=== PATIENT | female | born 1945 | race Caucasian/White ===

== ENCOUNTER 2023-03-24 10:23 | Outpatient (CLI) | payer MEDICARE, SELFPAY ==
[2023-03-24 11:15] LABS: INR 1.3; Prothrombin Time 16.4 Seconds (11.1-14.7)
[2023-03-24 11:17] LABS: Anion Gap 5 mmol/L (8-16); Blood Urea Nitrogen 45 mg/dL (7-17); Calcium 8.8 mg/dL (8.4-10.2); Carbon Dioxide 34 mmol/L (22-30); Chloride 95 mmol/L (98-107); Estimated Glomerular Filt Rate 20; Glucose 97 mg/dL (65-110); Potassium 4.2 mmol/L (3.4-5.0); Sodium 134 mmol/L (137-145)
== END 2023-03-24 10:24 | disposition home or self-care (01) ==
PROVIDERS: Referring Provider Urology; Visit Provider Anesthesiology
DX: Z01.818 Encounter for other preprocedural examination (principal); N36.42 Intrinsic sphincter deficiency (ISD); N28.9 Disorder of kidney and ureter, unspecified
CPT/HCPCS: 36415; 80048; 85610; 85730; 87086; 87088

== ENCOUNTER 2023-03-30 03:30 | Day surgery (SDC) | payer MEDICARE, SELFPAY ==
[2023-03-23 11:40] VITALS: BMI 28.4
--- NOTE | 2023-03-23 12:12 | PC.NURSE ---
Report to the Outpatient Waiting Room, entrance under the green pavilion located off [facility], at time __6:15AM on date __03/30/23 . Planned Procedure Time: __8:15AM . Time changes happen often and if your time is changed the preop area will call you the afternoon before. - You and your visitor will be asked to self-screen and do not enter if you have any COVID symptoms. - A mask is optional within the hospital at this time. Patients may have clear liquids (water, carbonated beverages, clear teas, apple juice) until 3 hours prior to surgery with a maximum of 20 ounces. - No food from midnight until time of surgery Take the following medications with a SIP of water the morning of surgery: __BREO ELLIPTA INHALER, CARBIPOPA-LEVODOPA, DOXAZOSIN & DULOXETINE. TAKE NEEDED- ALBUTEROL INHALER, ZOFRAN, TRAMADOL OR HYDROCODONE DO NOT STOP ANY OF YOUR OTHER PRESCRIPTION MEDICATIONS PRIOR TO SURGERY ?EXCEPT THE FOLLOWING Medications to discontinue per physician __HOLD ELIQUIS 2 DAYS PRE-OP PER DR SCHULZ(PER PATIENT/)- LAST DOSE 03/28/23-PER DR SCHULZ. HOLD ALL VITAMINS/SUPPLEMENTS 3 DAYS PRE-OP PER ANESTHESIA- LAST DOSE 03/26/23 Please no make-up, nail serbian, hairspray, perfume, deodorant, or body powder the day of surgery. No jewelry (including any body piercings) or valuables the day of surgery, leave them at home. Please take a shower or bath the night before, or the morning of, surgery with an antibacterial soap. Wear comfortable, loose fitting clothing. Children are encouraged to wear pajamas. - Jewelry must be removed prior to entering the operating room. Rings and piercings that are not removed may be cut off. - The hospital will not accept responsibility for valuables. - Please leave all valuables, including medications, at home the day of surgery. If you are going home after surgery, a licensed class a regional drivers must drive you home. - NO public transportation without another adult if you receive anesthesia. - We recommend that an adult stay with you for 24 hours following discharge. - We also recommend that you do not drive, make important decision, drink alcoholic beverages, or take any drugs that were not prescribed by your health care provider for at least 24 hours after your discharge time. Follow any additional instructions given to you from your surgeon. If you or anyone in your household have experienced Covid symptoms in the past week, please notify your surgeon or the nurse liaison at the phone number below for possible testing. Telephone instructions given to __PATIENT & HUSBAND and asked if any additional questions and then verbalized understanding. Patient advised to call surgeon office or pre surgery nurse liaison [phone] if any additional questions.
--- NOTE | 2023-03-29 07:39 | PM.IMHP ---
H&P: HPI History of Present Illness Date/Time: 03/29/23 07:39 Chief Complaint: mixed incontinence Narrative: 77-year-old with mixed incontinence. She is on medication for overactive bladder symptoms. She desires a surgical procedure for stress incontinence and intrinsic sphincter deficiency Review of Systems Review of Systems: All systems reviewed & are unremarkable except as noted in HPI and below PMFSH Social History Social History Smoking status: Never smoker Substance use: never Living arrangements: with family Additional living arrangements comments: HUSB Spiritual care concerns: No Meds Home Medications and Allergies Home Medications Medication Instructions Recorded Confirmed Type Lactobac no.2-Bifidobac no.1-S. 1 cap PO DAILY 03/23/23 03/23/23 History thermo 112.5 billion cell capsule (VSL#3) albuterol sulfate 90 mcg/actuation 2 puff inhalation Q4-5H PRN 03/23/23 03/23/23 History aerosol inhaler Shortness Of Breath Or Wheezing allopurinol 100 mg tablet 100 mg PO DAILY 03/23/23 03/23/23 History apixaban 2.5 mg tablet (Eliquis) 2.5 mg PO BID 03/23/23 03/23/23 History atorvastatin 40 mg tablet 40 mg PO DAILY 03/23/23 03/23/23 History carbidopa 25 mg-levodopa 100 mg 1 tablet PO TID 03/23/23 03/23/23 History tablet cholecalciferol (vitamin D3) 125 125 mcg PO DAILY 03/23/23 03/23/23 History mcg (5,000 unit) tablet colchicine (gout) 0.6 mg capsule 0.6 mg PO DAILY PRN GOUT 03/23/23 03/23/23 History doxazosin 2 mg tablet 2 mg PO BID 03/23/23 03/23/23 History duloxetine 30 mg capsule,delayed 30 mg PO HS 03/23/23 03/23/23 History release duloxetine 60 mg capsule,delayed 60 mg PO QAM 03/23/23 03/23/23 History release esomeprazole magnesium 40 mg 40 mg PO QAM 03/23/23 03/23/23 History capsule,delayed release famotidine 20 mg tablet 20 mg PO HS 03/23/23 03/23/23 History fluticasone furoate 100 1 inh inhalation QAM 03/23/23 03/23/23 History mcg-vilanterol 25 mcg/dose inhalation powder (Breo Ellipta) furosemide 20 mg tablet (Lasix) 20 mg PO BID 03/23/23 03/23/23 History hydrocodone 5 mg-acetaminophen 325 1 tablet PO Q8-10H PRN Pain 03/23/23 03/23/23 History mg tablet hydroxyzine HCl 25 mg tablet 25 mg PO DAILY PRN Itching 03/23/23 03/23/23 History latanoprost 0.005 % eye drops 1 drp EACH EYE HS 03/23/23 03/23/23 History magnesium 500 mg tablet 15 mg PO HS 03/23/23 03/23/23 History melatonin 5 mg capsule 5 mg PO HS 03/23/23 03/23/23 History metoprolol succinate 100 mg 100 mg PO HS 03/23/23 03/23/23 History tablet,extended release 24 hr mirabegron 50 mg tablet,extended 50 mg PO QAM 03/23/23 03/23/23 History release 24 hr (Myrbetriq) ondansetron HCl 4 mg tablet 4 mg PO Q6H PRN Nausea 03/23/23 03/23/23 History potassium chloride 20 mEq 20 meq PO DAILY 03/23/23 03/23/23 History tablet,extended release ropinirole 0.5 mg tablet 0.5 mg PO DIRECTED 03/23/23 03/23/23 History ropinirole 1 mg tablet 1 mg PO BID 03/23/23 03/23/23 History solifenacin 5 mg tablet 5 mg PO DAILY 03/23/23 03/23/23 History tramadol 50 mg tablet 50 mg PO BID PRN Pain 03/23/23 03/23/23 History Allergies Allergy/AdvReac Type Severity Reaction Status Date / Time Sulfa (Sulfonamide Allergy Itching Verified 03/23/23 11:14 Antibiotics) metoclopramide [From Reglan] AdvReac Shakiness Verified 03/23/23 11:15 Exam Narrative: no acute distress alert oriented x3 fixed urethra Assessment and Plan Assessment and plan (1) Intrinsic sphincter deficiency (ISD): Code(s): N36.42 - Intrinsic sphincter deficiency (ISD) Status: Acute Assessment and Plan: plan for bulking agent. Understands risks of bleeding, infection, damage surrounding organs, urinary retention requiring catheterization, persistent or recurrent incontinence, need for procedures in the future. Agrees to proceed she also understands will not hel
[2023-03-30] VITALS (7 sets, daily range): BP systolic 115–164; BP diastolic 58–80; PULSE 64–83; RESP 12–18; TEMP 36.3; O2SAT 97–98
[2023-03-30] MEDS: LACTATED RINGERS 1,000 ML 30 ML IV CONT (06:30)
[2023-03-30 06:49] LABS: Anion Gap 8 mmol/L (8-16); Blood Urea Nitrogen 49 mg/dL (7-17); Calcium 8.9 mg/dL (8.4-10.2); Carbon Dioxide 31 mmol/L (22-30); Chloride 99 mmol/L (98-107); Estimated CRCL calculation 20 ml/min; Estimated Glomerular Filt Rate 21; Glucose 102 mg/dL (65-110); Potassium 4.1 mmol/L (3.4-5.0); Sodium 138 mmol/L (137-145)
--- NOTE | 2023-03-30 06:51 | WPDANESEPPF ---
Anes - Initial Pre Proc Eval Procedure: Operation Date: 03/30/23 07:30 Proposed Procedures p Cystoscopy, Injection Bulking Agent - Hector Bettencourt MD Date/Time: 03/30/23 06:51 Surgeon: Hector Bettencourt MD Pre Op Diagnosis: ID Patient Data Age: 77 Gender: F Height: 1.68 m Weight: 81.8 kg Last Vital Signs Temp 36.3 C L 03/30/23 06:14 Pulse 83 03/30/23 06:14 Resp 18 03/30/23 06:14 BP 118/75 03/30/23 06:14 Pulse Ox 98 03/30/23 06:14 O2 Del Method Room Air 03/30/23 06:14 Allergies Allergy/AdvReac Type Severity Reaction Status Date / Time Sulfa (Sulfonamide Allergy Itching Verified 03/30/23 06:39 Antibiotics) metoclopramide [From Reglan] AdvReac Shakiness Verified 03/30/23 06:39 Home Medications Medication Instructions Recorded Confirmed Type Lactobac no.2-Bifidobac no.1-S. 1 cap PO DAILY 03/23/23 03/30/23 History thermo 112.5 billion cell capsule (VSL#3) albuterol sulfate 90 mcg/actuation 2 puff inhalation Q4-5H PRN 03/23/23 03/30/23 History aerosol inhaler Shortness Of Breath Or Wheezing allopurinol 100 mg tablet 100 mg PO DAILY 03/23/23 03/30/23 History apixaban 2.5 mg tablet (Eliquis) 2.5 mg PO BID 03/23/23 03/30/23 History atorvastatin 40 mg tablet 40 mg PO DAILY 03/23/23 03/30/23 History carbidopa 25 mg-levodopa 100 mg 1 tablet PO TID 03/23/23 03/30/23 History tablet cholecalciferol (vitamin D3) 125 125 mcg PO DAILY 03/23/23 03/30/23 History mcg (5,000 unit) tablet colchicine (gout) 0.6 mg capsule 0.6 mg PO DAILY PRN GOUT 03/23/23 03/30/23 History doxazosin 2 mg tablet 2 mg PO BID 03/23/23 03/30/23 History duloxetine 30 mg capsule,delayed 30 mg PO HS 03/23/23 03/30/23 History release duloxetine 60 mg capsule,delayed 60 mg PO QAM 03/23/23 03/30/23 History release esomeprazole magnesium 40 mg 40 mg PO QAM 03/23/23 03/30/23 History capsule,delayed release famotidine 20 mg tablet 20 mg PO HS 03/23/23 03/30/23 History fluticasone furoate 100 1 inh inhalation QAM 03/23/23 03/30/23 History mcg-vilanterol 25 mcg/dose inhalation powder (Breo Ellipta) furosemide 20 mg tablet (Lasix) 20 mg PO BID 03/23/23 03/30/23 History hydrocodone 5 mg-acetaminophen 325 1 tablet PO Q8-10H PRN Pain 03/23/23 03/30/23 History mg tablet hydroxyzine HCl 25 mg tablet 25 mg PO DAILY PRN Itching 03/23/23 03/30/23 History latanoprost 0.005 % eye drops 1 drp EACH EYE HS 03/23/23 03/30/23 History magnesium 500 mg tablet 15 mg PO HS 03/23/23 03/30/23 History melatonin 5 mg capsule 5 mg PO HS 03/23/23 03/30/23 History metoprolol succinate 100 mg 100 mg PO HS 03/23/23 03/30/23 History tablet,extended release 24 hr mirabegron 50 mg tablet,extended 50 mg PO QAM 03/23/23 03/30/23 History release 24 hr (Myrbetriq) ondansetron HCl 4 mg tablet 4 mg PO Q6H PRN Nausea 03/23/23 03/30/23 History potassium chloride 20 mEq 20 meq PO DAILY 03/23/23 03/30/23 History tablet,extended release ropinirole 0.5 mg tablet 0.5 mg PO DIRECTED 03/23/23 03/30/23 History ropinirole 1 mg tablet 1 mg PO BID 03/23/23 03/30/23 History solifenacin 5 mg tablet 5 mg PO DAILY 03/23/23 03/30/23 History tramadol 50 mg tablet 50 mg PO BID PRN Pain 03/23/23 03/30/23 History Laboratory Tests 03/30/23 06:19 PT Pending INR Pending APTT Pending Sodium 138 mmol/L (137-145) Potassium 4.1 mmol/L (3.4-5.0) Chloride 99 mmol/L (98-107) Carbon Dioxide 31 H mmol/L (22-30) Anion Gap 8 mmol/L (8-16) BUN 49 H mg/dL (7-17) Creatinine 2.30 H mg/dL (0.7-1.0) Estim Creat Clear Calc 20 ml/min Estimated GFR 21 L (59 - ) Glucose 102 mg/dL (65-110) Calcium 8.9 mg/dL (8.4-10.2) Patient hx anesthesia problems: none Family hx anesthesia problems: none Results Review: All pre-operative results and documents have been reviewed as part of the pre-operative evaluation. FORMERLY [facility], [facility] Past Medical History Medical History (Update
[2023-03-30 07:06] LABS: Prothrombin Time 14.1 Seconds (11.1-14.7)
[2023-03-30 07:08] LABS: Partial Thromboplastin Time 45.5 SECONDS (22.3-36.8)
--- NOTE | 2023-03-30 07:17 | WPDHPUPDATE1 ---
History and Physical Update Update Date/Time: 03/30/23 07:17 History and Physical has been reviewed, including an updated exam of the patient. There are NO changes in the patient's condition. Risks, benefits, and alternatives have been discussed and questions answered. Patient agrees to proceed with procedure.
[2023-03-30] MEDS: ceFAZolin 2 GM/D5W 50 ML 2 GM/50 ML BAG IVPB (07:28)
[2023-03-30] MEDS: LIDOCAINE HCL 2% GEL UROJET 10 ML PKG MUCOUS MEM (07:45)
--- NOTE | 2023-03-30 07:59 | W.PM.PROC2 ---
Procedure Note - Detailed Date of Procedure 03/30/23 Pre-op Diagnosis ISD Post-op Diagnosis Same Procedure Performed Cystoscopy with suburethral injection of bulking material Surgeon Hector Bettencourt MD Certified Breastfeeding Educator None Anesthesia MAC and Local (Uro jet) Indications This is a patient with mixed incontinence. She is on medication for overactive bladder. She would like a bulking agent for intrinsic sphincter deficiency. She understands risks of bleeding, infection, damage to the urinary tract, retention requiring catheterization, need for repeat procedures. She also understands it will not help her urge incontinence symptoms. He understands we are shooting for improvement rather than cure Findings Open urethra consistent with intrinsic sphincter deficiency Description of Procedure She has correctly identified. Informed consent obtained. She from the operating room. She was given monitored anesthesia care. She was placed in dorsal lithotomy position. She was prepped and draped sterile fashion. Time-out performed. Cystoscopy revealed a normal-appearing bladder with mild trabeculations and no significant abnormalities. Urethra is open consistent with intrinsic sphincter deficiency. I chose a site in the urethra 2 cm distal bladder neck. I injected bulking agent circumferentially. I injected 1-1/2 syringe total. There was excellent coaptation of the urethra. Her bladder was left partially full. She was awakened transferred to PACU in stable condition. Implants Bulking agent Estimated Blood Loss 0 Drains No Packing No Pathology None sent Complications No immediate complications Condition Stable Disposition PACU
--- NOTE | 2023-03-30 15:16 | SUR.PHASEII ---
RN applied leg bag to Reis and sent patient home with a standard Reis bag to switch to tonight if she wanted to.
== END 2023-03-30 10:55 | disposition home or self-care (01) ==
PROVIDERS: Anesthesiology; PCP Internal Medicine; Visit Provider Urology
PROC: 3E0K8GC Introduction of Other Therapeutic Substance into Genitourinary Tract, Via Natural or Artificial Opening Endoscopic (ICD-10-PCS; CPT 51715; principal; 2023-03-30 07:30)
DX: N36.42 Intrinsic sphincter deficiency (ISD) (principal); N39.46 Mixed incontinence; N32.81 Overactive bladder; I25.10 Atherosclerotic heart disease of native coronary artery without angina pectoris; I10 Essential (primary) hypertension; G47.33 Obstructive sleep apnea (adult) (pediatric); Z95.5 Presence of coronary angioplasty implant and graft; Z79.51 Long term (current) use of inhaled steroids; Z79.01 Long term (current) use of anticoagulants
CPT/HCPCS: 51715; 36415; 80048; 85610; 85730; 87086; 87088; J0690; J2704; J3010; J7120; L8606